=== PATIENT | female | born 2000 | race Two or more races ===

== ENCOUNTER 2025-06-26 04:39 | Emergency (ER) | payer OTHER ==
[~2025-06-26] VITALS: Ht 165.1 cm; Wt 79.5 kg
--- NOTE | 2025-06-26 04:59 | ED.PDOC ---
History of Present Illness HPI Comments 25-year-old, obese female presents with chief complaint of chest pain. Patient endorses on sudden, unprovoked, atraumatic onset of 6/10 sharp, midsternal pain, this morning, there radiates to her left chest wall. Mild relief when ambulating to the ED. No endorsed pertinent medical, surgical, or family his tory. Social history of occasional alcohol use, with last intake 06/24/2025. 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 Denies of any shortness of breath, nausea, vomiting, or further symptoms. Chief Complaint: Chest Pain Time Seen by MD: 04:50 Reviewed Notes: Nurses Notes, Medications, Allergies Allergies: Coded Allergies: NO KNOWN ALLERGIES (Unverified , 06/26/25) Information Source: Patient Mode of Arrival: Ambulatory Severity: Moderate Timing: Hours Duration: Since onset Prehospital treatment: None Past Medical History PAST MEDICAL HISTORY: Denies Surgical History: Denies all surgeries EMERGENCY DOCTOR History: Denies all EMERGENCY DOCTOR Hx Social History Smoker: Non-Smoker Alcohol: Occasionally Drugs: Denies Drug Use Lives In: Home All Other Systems: Reviewed and Negative (Comprehensive systems review obtained and negative except for what is stated in the HPI.) Physical Exam General Appearance: No Apparent Distress, Normal HEENT: Normal ENT Inspection, Pharynx Normal, TMs Normal Neck: Full Range of Motion, Non-Tender, Normal, Normal Inspection Respiratory: Lungs Clear, No Accessory Muscle Use, No Respiratory Distress, Normal Breath Sounds Cardiovascular: No Edema, No JVD, No Murmur, No Gallop, Normal Peripheral Pulses, Regular Rate/Rhythm Breast Exam: Deferred Gastrointestinal: No Organomegaly, Non Tender, No Pulsatile Mass, Normal Bowel Sounds, Soft Genitalia: Deferred Pelvic: Deferred Rectal: Deferred Extremities: No calf tenderness, Normal capillary refill, Normal inspection, Normal range of motion, Non-tender, No pedal edema Musculoskeletal : Location: Left Extremity Location: Chest (Chest wall) Apperance: Normal, Tenderness (Pain reproducible upon palpation and movement) Neurologic: Alert, windows and doors installer II-XII nml as Tested, No Motor Deficits, Normal Affect, Normal Mood, No Sensory Deficits Cerebellar Function: Normal Reflexes: Normal Skin: Dry, Normal Color, Warm Lymphatic: No Adenopathy Was a procedure done? Was a procedure done?: No EKG EKG : Pulse Rate (adult): 83 [place]: Normal Cardiac Rhythm: NSR Block: None Hypertrophy: None ST: Normal Differential Dx Considerations may include: Mi, PE, ACS, URI, angina, anxiety, gastritis, GERD, cholelithiasis, muscu loskeletal pain, viral, among others X-Ray, Labs, Meds, VS Vital Signs Date Time Temp Pulse Resp B/P (MAP) Pulse Ox O2 Delivery O2 Flow Rate FiO2 06/26/25 04:59 83 06/26/25 04:46 83 06/26/25 04:44 98.9 80 16 134/90 98 98.9 Time of 1ST Reevaluation: 05:20 Reevaluation 1ST: Unchanged Patient Education/Counseling: Diagnosis, Treatment, Need For Follow Up Family Education/Counseling: No Family Present Comments Patient has point tenderness on the left chest wall. This is also reproduced by range of motion. Patient states when she gets up to move around actually improves the pain. The pain is described as sharp. EKGs completely normal. Her chest x-ray is normal. She has a heart score of 0. Patient's condition is due to chest wall pain from musculoskeletal origin. She is stable for discharge. I will prescribe over Motrin for pain and take her off work for two days Additional Information The following tests were ordered, and results were reviewed by me: EKG, troponin, CMP, CBC, chest x-ray Additional Information was gathered from interviewing the following independent historians: N/A I reviewed and agreed with the following test results read by other providers: Chest x-ray I discussed treatment and results with medical personnel and: patient SEPSIS Sepsis Screen Physician Orders Complete Blood Count (06/26/25 04:43) Chest Portable (06/26/25 04:43) Comprehensive Metabolic Panel (06/26/25 04:43) Troponin-I Hs (06/26/25 04:43) Electrocardigram (06/26/25 04:43) Troponin-I Hs (06/26/25 05:43) Troponin-I Hs (06/26/25 07:43) Electrocardigram (06/26/25 05:43) Electrocardigram (06/26/25 07:43) Vital Signs Date Time Temp Pulse Resp B/P (MAP) Pulse Ox O2 Delivery O2 Flow Rate FiO2 06/26/25 04:59 83 06/26/25 04:46 83 06/26/25 04:44 98.9 80 16 134/90 98 98.9 Departure 1 Departure Time of Disposition: 05:06 Impression: Primary Impression: Non-cardiac chest pain Disposition: 01 HOME / SELF CARE / HOMELESS Condition: Stable Additional Instructions: Please be excused from work for the next two days to rest at home e-Prescriptions Ibuprofen Micronized (MOTRIN TABLET) 600 Mg Tb 600 MG PO TID PRN, #40 TAB *Black box warning-NSAIDS can increase risk of ID & hypertension, GI irritation, ulceration, bleed, perferation. Do not use post cardiac surgery. Use short duration/lowest effective dose. Prov: WALKER CAMACHO MD 06/26/25 Discharged With: Self Critical Care Note Critical Care Time?: No Stability Stability form required: No Heart Score Heart Score: Heart Score Response (Comments) Value History Slightly Suspicious 0 EKG Normal 0 Age <45 0 Risk Factors No known risk factors 0 Troponin N/A 0 Total 0 I personally scribed for WALKER CAMACHO MD ([email or web address]) on 06/26/25 at 04:59. Electronically submitted by Rob Lindsay [email or web address]). WALKER CAMACHO MD Jun 26, 2025 04:59
[2025-06-26] MEDS ORDERED: IBU600T PO (05:07)
--- NOTE | 2025-06-26 05:17 | DVH ---
CHEST RADIOGRAPH Indication: chest pain Technique: Single frontal view of the chest was obtained COMPARISON: None FINDINGS: Lines and Tubes: None Lungs: Clear. Right costophrenic sulcus excluded. Pleura: No effusion. No pneumothorax. Cardiomediastinal contours: Unremarkable Bones: Unremarkable IMPRESSION: 1. No radiographic evidence of acute cardiopulmonary abnormality.
[2025-06-26 05:39] VITALS: BP 107/76; PULSE 83; RESP 17; TEMP 98.2; O2SAT 97
--- NOTE | 2025-06-28 13:54 | ECG ---
[facility]– [place] Test Date: 2025-06-26 Test Time: 04:46:54 Pat Name: HALEIGH COLEMAN Department: ED Room: Gender: F Medical Operations Supervisor: : 2000 Requested By: WALKER CAMACHO Order Number: [id number] Reading MD: Allan Colón Measurements Intervals [place] Rate: 83 P: 55 RI: 147 QRS: 60 QRSD: 88 T: 9 QT: 346 QTc: 407 Interpretive Statements Sinus rhythm Low voltage, precordial leads Electronically Signed On 06-29-2025 19:20:52 PST by Allan Colón Please click the below link to view image of tracing.
== END 2025-06-26 05:39 | disposition home or self-care (01) ==
LOC: ER 04:39
DX: R07.2 Precordial pain (principal); F10.90 Alcohol use, unspecified, uncomplicated; E66.9 Obesity, unspecified; Z68.29 Body mass index [BMI] 29.0-29.9, adult
CPT/HCPCS: 71045; 93005